=== PATIENT | male | born 2000 | race Hispanic/Latino ===

== ENCOUNTER 2021-10-25 19:18 | Emergency (ER) | payer BC ==
[2021-10-25] MEDS ORDERED: Boostrix 0.5 ML (Tdap) VIAL ONE (19:28)
== END 2021-10-25 21:00 | disposition home or self-care (01) ==
LOC: ERS 19:18
DX: S60.221A Contusion of right hand, initial encounter (principal); Y04.0XXA Assault by unarmed brawl or fight, initial encounter
CPT/HCPCS: 90715